=== PATIENT | male | born 1960 | race Caucasian/White ===

== ENCOUNTER 2025-06-13 15:11 | Inpatient (IN) | payer BC ==
[~2025-06-13] VITALS: Ht 185.4 cm; Wt 164.3 kg
[2025-06-13] MEDS: SODIUM CHLORIDE 0.9% 1,000 ML IV SCH (04:50)
[2025-06-13 15:40] LABS: Hematocrit 47.6 % (41.0-53.0); Hemoglobin 16.6 g/dL (13.5-17.5); Mean Corpuscular Hemoglobin 30.4 pg (28.0-32.0); Mean Corpuscular Volume 87.0 fL (80.0-100.0); Nucleated Red Blood Cells % 0.1 %
[2025-06-13 15:46] LABS: Chloride 100 mmol/L (98-107)
[2025-06-13 15:48] LABS: Anion Gap 13 (5-15); Calcium 9.6 mg/dL (8.7-10.4); Carbon Dioxide 22 mmol/L (20-31)
[2025-06-13 15:49] LABS: Potassium 3.5 mmol/L (3.5-5.1); Sodium 135 mmol/L (136-145)
--- NOTE | 2025-06-13 15:51 | ED.PDOC ---
HPI Comments 64 y.o male with PMHx of HTN and HLD, presents to the ED for a chief complaint of chest pain associated with palpitations and SOB that started x 3 -4 days ago. Patient describes pain as a tightness sensation, is intermittent and has no alleviating factors. Patient states symptoms are worse walking up his stairs at home and slightly relieves at rest. He denies any nausea, vomiting, fever, chills, or leg swelling. Chief Complaint: Shortness of Breath Time Seen by MD: 13:32 Reviewed Notes: Nurses Notes, Medications, Allergies Allergies: Coded Allergies: Rabies Vaccine (Verified Allergy, Unknown, 06/13/25) Information Source: Patient Mode of Arrival: Ambulatory Severity: Moderate Timing: Days (3-4) Duration: Since onset Location: Substernal Radiation: No Radiation Quality: Tightness Onset: At Rest Cardiac Risk Factors: Hyperlipidemia, HTN PE Risk Factors: None History of: None Modifying Factors: Nothing Associated Signs and Symptoms: SOB, Palpitations Past Medical History PAST MEDICAL HISTORY: High Lipids, HTN Surgical History: Denies all surgeries Family History Family History: Reviewed,noncontributory to illness Social History Smoker: Non-Smoker Alcohol: Denies ETOH Use Drugs: Denies Drug Use Lives In: Home Constitutional: reports: sweats; denies: chills, diaphoresis, fatigue, fever, malaise, weakness, others EENTM: denies: blurred vision, double vision, ear bleeding, ear discharge, ear drainage, ear pain, ear ringing, eye pain, eye redness, hearing loss, mouth pain, mouth swelling, nasal discharge, nose bleeding, nose congestion, nose pain, photophobia, tearing, throat pain, throat swelling, voice changes, others Respiratory: reports: SOB at rest, shortness of breath, SOB with excertion; denies: cough, hemoptysis, orthopnea, stridor, wheezing, others Cardiovascular: reports: chest pain, palpitations; denies: dizzy spells, diaphoresis, Dyspnea on exertion, edema, irregular heart beat, left arm pain, lightheadedness, PND, syncope, others Gastrointestinal: denies: abdomen distended, abdominal pain, blood streaked bowels, constipated, diarrhea, dysphagia, difficulty swallowing, hematemesis, melena, nausea, poor appetite, poor fluid intake, rectal bleeding, rectal pain, vomiting, others Genitourinary: denies: burning, dysuria, flank pain, frequency, hematuria, incontinence, penile discharge, penile sore, pain, testicle pain, testicle swelling, urgency, others Neurological: denies: dizziness, fainting, headache, left sided numbness, left sided weakness, numbness, paresthesia, pre-existing deficit, right sided numbness, right sided weakness, seizure, speech problems, tingling, tremors, weakness, others Musculoskeletal: denies: back pain, gout, joint pain, joint swelling, muscle pain, muscle stiffness, neck pain, others Integumetry: denies: bruises, change in color, change in hair/nails, dryness, laceration, lesions, lumps, rash, wounds, others Allergic/Immunocompromised: denies: Difficulty Healing, Frequent Infections, Hives, Itching, others Hematologic/Lymphatic: denies: anemia, blood clots, easy bleeding, easy bruising, swollen glands, others Endocrine: denies: excessive hunger, excessive sweating, excessive thirst, excessive urination, flushing, intolerance to cold, intolerance to heat, unexplained weight gain, unexplained weight loss, others Psychiatric: denies: anxiety, bipolar disorder, depression, hopeless, panic disorder, schizophrenia, sleepless, suicidal, others All Other Systems: Reviewed and Negative Physical Exam General Appearance: Moderate Distress, Obese HEENT: Normal ENT Inspection, Pharynx Normal, TMs Normal Neck: Full Range of Motion, Non-Tender, Normal, Normal Inspection Respiratory: Chest Non-Tender, Lungs Clear, No Accessory Muscle Use, No Respiratory Distress, Normal Breath Sounds Cardiovascular: No Edema, No JVD, No Murmur, No Gallop, Normal Peripheral Pulses, Regular Rate/Rhythm Breast Exam: Deferred Gastrointestinal: No Organomegaly, Non Tender, No Pulsatile Mass, Normal Bowel Sounds, Soft Genitalia: Deferred Pelvic: Deferred Rectal: Deferred Extremities: No calf tenderness, Normal capillary refill, Normal inspection, Normal range of motion, Non-tender, No pedal edema Musculoskeletal : Apperance: Normal 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 Was a procedure done?: No CP Differential Dx Differential Diagnosis: A-fib, A-Flutter, Angina, Anxiety / Panic Attack, Atrial Dysrhythmia, Electrolyte Disorder Differential Diagnosis: Angina, Chest Wall Pain, Cholelithiasis, Costochondritis, Pericarditis, Pneumonia X-Ray, Labs, Meds, VS Vital Signs Date Time Temp Pulse Resp B/P (MAP) Pulse Ox O2 Delivery O2 Flow Rate FiO2 06/13/25 16:06 93 06/13/25 15:26 92 06/13/25 15:14 97.6 103 19 153/86 97 97.6 Lab Test 06/13/25 16:24 06/13/25 15:33 Range/Units Troponin I High Sensitivity 4 4 </=54 ng/L White Blood Count 8.8 4.4-10.8 10^3/uL Red Blood Count 5.46 4.5-5.90 10^6/uL Hemoglobin 16.6 13.5-17.5 g/dL Hematocrit 47.6 41.0-53.0 % Mean Corpuscular Volume 87.0 80.0-100.0 fL Mean Corpuscular Hemoglobin 30.4 28.0-32.0 pg Mean Corpuscular Hemoglobin Concent 34.9 32.0-36.0 g/dL Red Cell Distribution Width 13.5 11.8-14.3 % Platelet Count 297 140-450 10^3/uL Mean Platelet Volume 7.6 6.9-10.8 fL Neutrophils (%) (Auto) 73.3 37.0-80.0 % Lymphocytes (%) (Auto) 16.8 10.0-50.0 % Monocytes (%) (Auto) 8.4 0.0-12.0 % Eosinophils (%) (Auto) 0.9 0.0-7.0 % Basophils (%) (Auto) 0.6 0.0-2.0 % Neutrophils # (Auto) 6.4 1.6-8.6 10 ^3/uL Lymphocytes # (Auto) 1.5 0.4-5.4 10 ^3/uL Monocytes # (Auto) 0.7 0-1.3 10 ^3/uL Eosinophils # (Auto) 0.1 0-0.8 10 ^3/uL Basophils # (Auto) 0.1 0-0.2 10 ^3/uL Nucleated Red Blood Cells 0.1 % Sodium Level 135 L 136-145 mmol/L Potassium Level 3.5 3.5-5.1 mmol/L Chloride Level 100 98-107 mmol/L Carbon Dioxide Level 22 20-31 mmol/L Anion Gap 13 5-15 Blood Urea Nitrogen 7 L 9-23 mg/dL Creatinine 1.07 0.700-1.30 mg/dL Glomerular Filtration Rate Calc 78 >90 mL/min BUN/Creatinine Ratio 6.5 L 10.0-20.0 Serum Glucose 123 H 74-106 mg/dL Calcium Level 9.6 8.7-10.4 mg/dL B-Type Natriuretic Peptide 9.84 0-100 pg/mL Patient alert. Came in because of shortness a breath chest pain. Vitals stable. Answering questions. WBC within normal limits. Blood pressure elevated. EKG reviewed does not show any acute changes. Explained to the patient. Continue monitoring. Time of 1ST Reevaluation: 15:47 Reevaluation 1ST: Unchanged Patient Education/Counseling: Diagnosis, Treatment, Prognosis Family Education/Counseling: No Family Present SEPSIS Sepsis Screen Date sepsis recognized/suspect: Jun 13, 2025 Time Sepsis recognized/suspect: 1516 Recent Procedure: No On Antibiotic Therapy: No Respiratory Rate >20: No Heart Rate >90: No Temp<36 C (96.8 F) or >38.3 C: No SBP <90 or MAP <65 mmHG: No New Acute Mental Status Change: No Is the patient on CPAP, BIPAP,: No Physician Orders Chest Portable (06/13/25 15:28) Urinalysis (06/13/25 15:28) Troponin-I Hs (06/13/25 18:28) Electrocardigram (06/13/25 16:55) Vital Signs Date Time Temp Pulse Resp B/P (MAP) Pulse Ox O2 Delivery O2 Flow Rate FiO2 06/13/25 16:06 93 06/13/25 15:26 92 06/13/25 15:14 97.6 103 19 153/86 97 97.6 Laboratory Tests Test 06/13/25 15:33 White Blood Count 8.8 10^3/uL (4.4-10.8) Departure 1 Departure Time of Disposition: 16:03 Impression: Primary Impression: Chest pain of unknown etiology Additional Impression: Hypertensive urgency Disposition: 09 ADMITTED INPATIENT Admit to: Med Surg Condition: Guarded Critical Care Note Critical Care Time?: No Stability Stability form required: No Heart Score Heart Score: Heart Score Response (Comments) Value History Moderate Suspicious 1 EKG Normal 0 Age 45-64 1 Risk Factors >3 or Hx ASHD 2 Troponin Normal limit 0 Total 4 I personally scribed for CHRISTA MELGAR MD ([email or web address]) on 06/13/25 at 15:51. Electronically submitted by Lexis Grullon ([email or web address]). CHRISTA MELGAR MD Jun 13, 2025 15:51
[2025-06-13 15:53] LABS: BUN/Creatinine Ratio 6.5 (10.0-20.0)
[2025-06-13 15:55] LABS: Blood Urea Nitrogen 7 mg/dL (9-23); Glucose 123 mg/dL (74-106)
--- NOTE | 2025-06-13 16:07 | ECG ---
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
--- NOTE | 2025-06-13 16:39 | DVH ---
CHEST RADIOGRAPH INDICATION: sob TECHNIQUE: Single frontal view of the chest was obtained COMPARISON: None FINDINGS: Lines and Tubes: None Lungs: Clear Pleura: No effusion. No pneumothorax. Cardiomediastinal contours: Unremarkable Bones: Unremarkable IMPRESSION: 1. No acute disease.
[2025-06-13 18:29] LABS: Urine Protein, UAD Negative (Negative)
[2025-06-13] MEDS ORDERED: HYDROcodone-ACET 5/325MG TAB PO PRN (20:15)
[2025-06-13] MEDS ORDERED: ACETAMINOPHEN 325 MG TAB PO PRN (20:15)
[2025-06-13] MEDS ORDERED: ALBUTEROL SULF 2.5 MG/0.5ML(0.5%) NEB SOLN NEB PRN (20:15)
[2025-06-13] MEDS ORDERED: ONDANSETRON HCL 4 MG/2 ML VIAL IV PRN (20:15)
[2025-06-13] MEDS ORDERED: IPRATROPIUM BROM 0.5 MG/2.5ML INH SOL NEB PRN (20:15)
[2025-06-13] MEDS ORDERED: DOCUSATE SOD 100 MG CAP PO PRN (20:15)
[2025-06-13 20:48] VITALS: BP 140/92; PULSE 89; RESP 16; TEMP 98.1; O2SAT 94
[2025-06-13] MEDS ORDERED: MORPHINE SULFATE INJ 2 MG/ml SYRG IV PRN (21:30)
[2025-06-13] MEDS ORDERED: NITROGLYCERIN 0.4 MG SL TAB SL PRN (21:30)
--- NOTE | 2025-06-13 21:31 | DVHHP2 ---
History of Present Illness Reason for Visit: Chest pain of unknown etiology History of Present Illness The patient is a 64-year-old male with past medical history of hyperlipidemia and hypertension who presented to [facility] ED with complaint of chest pain. Patient reports that he has been experiencing chest pain for the past 3 days, described as tightness sensation, intermittent, nonradiating, rating 7/10 numeric scale, worse working up his stairs at home, getting worse today that prompted this visit. Patient was seen and evaluated in the ED, laboratory data shows WBC 8.8, platelets 297, sodium 135, potassium 3.5, BUN 7, creatinine 1.07, GFR 78, glucose 123, calcium 9.6, troponin 4, BNP 9.84, blood pressure 164/80, heart rate 96, temperature 98.5 F, O2 saturation 96% on oxygen. Chest x-ray show no acute disease. On my assessment, patient denied chest pain at this moment, no headache, diaphoresis, diaphoresis, currently on oxygen, no diarrhea, nausea, vomiting, fever, no chills. Patient was admitted for further evaluation and medical management. Past Medical History High Lipids, HTN Past Surgical History Denies all surgeries Family History Reviewed, noncontributory to the management of this case. Past Social History The patient lives at home, denies smoking, alcohol or illicit drugs abuse. Review of Systems Constitutional: Yes: Weakness; No: Fever, Chills, Sweats, Malaise, Other Eyes: No: Pain, Vision change, Conjunctivae inflammation, Eyelid inflammation, Other, Redness ENT: No: Ear pain, Ear discharge, Nose pain, Nose discharge, Nose congestion, Mouth pain, Mouth swelling, Throat pain, Throat swelling, Other Respiratory: Shortness of breath, SOB with excertion, Wheezing, Other (SOB at rest); No: Cough, Dry, Hemoptysis, Pleuritic Pain, Sputum, Wheezing Cardiovascular: Chest Pain, Palpitations; No: Orthopnea, Paroxysmal Noc. Dyspnea, Edema, Lt Headedness, Other Gastrointestinal: No: Nausea, Vomiting, Abdominal Pain, Diarrhea, Constipation, Melena, Hematochezia, Other Genitourinary: No Dysuria, No Frequency, No Incontinence, No Hematuria, No Retention, No Other Musculoskeletal: No: other, neck pain, shoulder pain, arm pain, back pain, hand pain, leg pain, foot pain Skin: No: Rash, Lesions, Jaundice, Bruising, Other Neurological: No: Weakness, Numbness, Incoordination, Change in speech, Confusion, Seizures, Other Allergies: Coded Allergies: Rabies Vaccine (Verified Allergy, Unknown, 06/13/25) Medications Current Medications Medications Dose Ordered Sig/Henri Route Start Time Stop Time Status Last Admin Dose Admin Aspirin 81 mg DAILY PO 06/14/25 10:00 Atorvastatin Calcium 20 mg HS PO 06/13/25 22:00 Albuterol 2.5 mg Q4HPRN PRN NEB 06/13/25 20:15 Ipratropium [place] 0.5 mg Q4HPRN PRN NEB 06/13/25 20:15 Amlodipine Besylate 10 mg DAILY PO 06/14/25 10:00 Metoprolol Tartrate 25 mg BID PO 06/13/25 22:00 Sodium Chloride 1,000 ml @ 60 mls/hr [id number] IV 06/13/25 20:15 Acetaminophen/ Hydrocodone Bitart 1 tab Q4HP PRN PO 06/13/25 20:15 Ondansetron HCl 4 mg Q4HP PRN IV 06/13/25 20:15 Docusate Sodium 100 mg BIDPRN PRN PO 06/13/25 20:15 Acetaminophen 650 mg Q6HP PRN PO 06/13/25 20:15 Exam Vital Signs Vital Signs Date Time Temp Pulse Resp B/P (MAP) Pulse Ox O2 Delivery O2 Flow Rate FiO2 06/13/25 20:48 98.1 89 16 140/92 (108) 94 98.1 General Appearance: Alert, Oriented X3, Cooperative, No acute distress HEENT: Atraumatic, PERRLA, EOMI, Mucous membr. moist/pink Respiratory: Normal air movement, Other (Shortness of breaths) Cardiovascular: Regular rate, Normal S1, Normal S2, No murmurs Abdominal: Normal bowel sounds, Soft, No tenderness, No hepatospenomegaly, No masses Extremities: No clubbing, No cyanosis, No edema, Normal pulses, No tenderness/swelling Skin: No rashes, No significant lesion Neuro: Normal speech, Normal tone, Sensation intact, Cranial nerves 3-12 NL, Reflexes 2+ Psych/Mental Status: Mental status NL, Mood NL Labs/Xrays Labs Test 06/13/25 17:45 06/13/25 16:24 06/13/25 15:33 Range/Units Urine Color Yellow Yellow Urine Clarity Clear Clear Urine pH 5.5 5.0-9.0 Urine Specific [place] 1.014 1.001-1.035 Urine Protein Negative Negative Urine Ketones 2+ H Negative Urine Blood Negative Negative /uL Urine Nitrite Negative Negative Urine Bilirubin Negative Negative Urine Urobilinogen Normal Negative mg/dL Urine Leukocyte Esterase Negative Negative /uL Urine RBC 1 0 - 3 /hpf Urine Microscopic WBC 1 0-3 /HPF Urine Squamous Epithelial Cells None seen <5 /hpf Urine Bacteria None seen None Seen /hpf Urine Glucose Normal Normal mg/dL Troponin I High Sensitivity 4 </=54 ng/L White Blood Count 8.8 4.4-10.8 10^3/uL Red Blood Count 5.46 4.5-5.90 10^6/uL Hemoglobin 16.6 13.5-17.5 g/dL Hematocrit 47.6 41.0-53.0 % Mean Corpuscular Volume 87.0 80.0-100.0 fL Mean Corpuscular Hemoglobin 30.4 28.0-32.0 pg Mean Corpuscular Hemoglobin Concent 34.9 32.0-36.0 g/dL Red Cell Distribution Width 13.5 11.8-14.3 % Platelet Count 297 140-450 10^3/uL Mean Platelet Volume 7.6 6.9-10.8 fL Neutrophils (%) (Auto) 73.3 37.0-80.0 % Lymphocytes (%) (Auto) 16.8 10.0-50.0 % Monocytes (%) (Auto) 8.4 0.0-12.0 % Eosinophils (%) (Auto) 0.9 0.0-7.0 % Basophils (%) (Auto) 0.6 0.0-2.0 % Neutrophils # (Auto) 6.4 1.6-8.6 10 ^3/uL Lymphocytes # (Auto) 1.5 0.4-5.4 10 ^3/uL Monocytes # (Auto) 0.7 0-1.3 10 ^3/uL Eosinophils # (Auto) 0.1 0-0.8 10 ^3/uL Basophils # (Auto) 0.1 0-0.2 10 ^3/uL Nucleated Red Blood Cells 0.1 % Sodium Level 135 L 136-145 mmol/L Potassium Level 3.5 3.5-5.1 mmol/L Chloride Level 100 98-107 mmol/L Carbon Dioxide Level 22 20-31 mmol/L Anion Gap 13 5-15 Blood Urea Nitrogen 7 L 9-23 mg/dL Creatinine 1.07 0.700-1.30 mg/dL Glomerular Filtration Rate Calc 78 >90 mL/min BUN/Creatinine Ratio 6.5 L 10.0-20.0 Serum Glucose 123 H 74-106 mg/dL Calcium Level 9.6 8.7-10.4 mg/dL B-Type Natriuretic Peptide 9.84 0-100 pg/mL PATIENT: BOB ALVAREZ ACCT: [id number] UNIT: [id number] : 1960 LOC: ER ROOM / BED: / AGE / SEX: 64 / M ADM STATUS: REG ER SERVICE 1528 ORDERING PHYSICIAN: CHRISTA MELGAR MD PROCEDURE(s): CXRP - CHEST PORTABLE REASON: sob ORDER NUMBER(s): [id number], ACCESSION NUMBER(s): [id number] CHEST RADIOGRAPH INDICATION: sob TECHNIQUE: Single frontal view of the chest was obtained COMPARISON: None FINDINGS: Lines and Tubes: None Lungs: Clear Pleura: No effusion. No pneumothorax. Cardiomediastinal contours: Unremarkable Bones: Unremarkable IMPRESSION: 1. No acute disease. SEPSIS Sepsis Screen Date sepsis recognized/suspect: Jun 13, 2025 Time Sepsis recognized/suspect: 1517 Recent Procedure: No On Antibiotic Therapy: No Respiratory Rate >20: No Heart Rate >90: No Temp<36 C (96.8 F) or >38.3 C: No SBP <90 or MAP <65 mmHG: No New Acute Mental Status Change: No Is the patient on CPAP, BIPAP,: No Physician Orders Chest Portable (06/13/25 15:28) Electrocardigram (06/13/25 16:55) Aspirin Chewable Tablet (06/14/25 10:00) Atorvastatin (Lipitor) (06/13/25 22:00) Albuterol Medneb (Ventolin Medneb) (06/13/25 20:15) Ipratropium Medneb (Atrovent Medneb) (06/13/25 20:15) Amlodipine Tablet (Norvasc Tablet) (06/14/25 10:00) Metoprolol Tartrate Tablet (Lopressor Ta (06/13/25 22:00) Allergies (06/13/25 20:11) Code Status (06/13/25 20:11) Sodium Chloride 0.9% (06/13/25 20:15) Oxygen Per Hour (06/13/25 20:11) Hydrocodone-Acet 5/325mg Tab ([place] 5/32 (06/13/25 20:15) Ondansetron Hcl (Zofran) (06/13/25 20:15) Docusate Sodium Capsule (Colace Capsule) (06/13/25 20:15) Complete Blood Count (06/14/25 04:00) Comprehensive Metabolic Panel (06/14/25 04:00) Cardiac Diet-2gna,Lofat,Lochol (06/14/25 Breakfast) Condition: Serious (06/13/25 20:11) Acetaminophen Tablet (Tylenol Tablet) (06/13/25 20:15) Bedrest With Bathroom Privileg (06/13/25 20:11) Sequential Compression Device (06/13/25 ) Vital Signs Date Time Temp Pulse Resp B/P (MAP) Pulse Ox O2 Delivery O2 Flow Rate FiO2 06/13/25 20:48 98.1 89 16 140/92 (108) 94 98.1 06/13/25 18:57 98.5 96 20 164/80 (108) 96 98.5 06/13/25 16:06 93 06/13/25 15:26 92 06/13/25 15:14 97.6 103 19 153/86 97 97.6 Laboratory Tests Test 06/13/25 15:33 White Blood Count 8.8 10^3/uL (4.4-10.8) Assessment/Plan Assessment/Plan Chest pain of unknown etiology Hypertensive urgency Acute respiratory distress Generalized weakness Plan 1. Admit to telemetry unit 2. Breathing treatment 3. Pain control management 4. Management of fluids and electrolytes 5. Consultation for hospitalist 6. Diagnostic tests chest x-ray 7. DVT prophylaxis-on aspirin 8. Repeat labs CBC, CMP in a.m. 9. Continue with current medical management 10. Treatment plan discussed with patient and RN. Patient verbalized understanding. Plan discussed with: Patient, Other (RN) My Orders Orders - GREER NATARAJAN DNP Procedure Category Date Status Time Aspirin Chewable PHA 06/14/25 In Process Tablet 10:00 Atorvastatin (Lipitor) PHA 06/13/25 In Process 22:00 Albuterol Medneb PHA 06/13/25 In Process (Ventolin Medneb) 20:15 Ipratropium Medneb PHA 06/13/25 In Process (Atrovent Medneb) 20:15 Amlodipine Tablet PHA 06/14/25 In Process (Norvasc Tablet) 10:00 Metoprolol Tartrate PHA 06/13/25 In Process Tablet (Lopressor Ta 22:00 Allergies NICOLE 06/13/25 In Process 20:11 Code Status CODE 06/13/25 Transmitted 20:11 Sodium Chloride 0.9% PHA 06/13/25 In Process 20:15 Oxygen Per Hour RT 06/13/25 Transmitted 20:11 Hydrocodone-Acet PHA 06/13/25 In Process 5/325mg Tab ([place] 20:15 Ondansetron Hcl PHA 06/13/25 In Process (Zofran) 20:15 Docusate Sodium PHA 06/13/25 In Process Capsule (Colace 20:15 Complete Blood Count LAB 06/14/25 Verified 04:00 Comprehensive LAB 06/14/25 Verified Metabolic Panel 04:00 Cardiac DIET 06/14/25 Transmitted Diet-2gna,Lofat,Lochol Breakfast Condition: Serious NICOLE 06/13/25 In Process 20:11 Acetaminophen Tablet PHA 06/13/25 In Process (Tylenol Tablet) 20:15 Bedrest With Bathroom NICOLE 06/13/25 In Process Privileg 20:11 Sequential NICOLE 06/13/25 In Process Compression Device Problem List: (1) Chest pain of unknown etiology (2) Hypertensive urgency (3) Acute respiratory distress (4) Generalized weakness Date of Service: Jun 13, 2025 Billing Provider: GREER NATARAJAN DNP Common Visit Codes: [id number] INP/OBS CARE (HIGH) GREER NATARAJAN DNP Jun 13, 2025 21:31
[2025-06-14] VITALS (10 sets, daily range): BP systolic 122–168; BP diastolic 74–93; PULSE 60–85; RESP 17–18; TEMP 97.5–98.5; O2SAT 95–99
[2025-06-14] MEDS: ATORVASTATIN 20 MG TAB PO SCH ×2 (03:30→21:46)
[2025-06-14] MEDS: METOPROLOL TARTRATE 25 MG TAB PO SCH ×2 (03:31→21:47)
[2025-06-14] MEDS ORDERED: ATOR20TA PO (04:39)
[2025-06-14] MEDS ORDERED: AMLO1TAB23 PO (04:39)
[2025-06-14] MEDS ORDERED: LISI-707 PO (04:39)
[2025-06-14 10:33] LABS: Hematocrit 42.7 % (41.0-53.0); Hemoglobin 15.4 g/dL (13.5-17.5); Mean Corpuscular Hemoglobin 30.7 pg (28.0-32.0); Mean Corpuscular Volume 84.9 fL (80.0-100.0); Nucleated Red Blood Cells % 0.1 %
[2025-06-14 10:49] LABS: Albumin 4.2 g/dL (3.2-4.8); Alkaline Phosphatase 75 U/L (46-116); Anion Gap 9 (5-15); BUN/Creatinine Ratio 7.1 (10.0-20.0); Bilirubin, Total 0.9 mg/dL (0.2-1.0); Calcium 9.6 mg/dL (8.7-10.4); Carbon Dioxide 26 mmol/L (20-31); Chloride 101 mmol/L (98-107); Potassium 3.6 mmol/L (3.5-5.1); Total Protein 6.5 g/dL (5.7-8.2)
[2025-06-14 10:50] LABS: Alanine Aminotransferase 41 U/L (7-40); Blood Urea Nitrogen 7 mg/dL (9-23); Glucose 108 mg/dL (74-106); Sodium 136 mmol/L (136-145)
--- NOTE | 2025-06-14 16:37 | DVHPN2 ---
Assessment/Plan Assessment/Plan 64 M with HTN, HLD morbid obesity, CHUCKY admitted for chest pain, from patient complaints pain looks like anginal pain. 06/14 seen today, c/w bb. cardio consult for stress test vs cath as pt high risk. use own cpap at night physical exam aox4 morbidly obese diminished breath sounds due to habituis s1 s2 distant abdomen soft LE edema labs ekg imaging reviewed assessment and plan chest pain likely of cardiac origin morbid obesity HTN HLD CHUCKY echo telemetry cardio consult for stress test use own cpap at night resum ehome meds asa, lipitor diet cardiac dvt ppx lovenox full code Plan discussed with: Patient Date of Service: Jun 14, 2025 Billing Provider: RACHEL DALAL MD Common Visit Codes: [id number] INP/OBS CARE(HIGH) RACHEL DALAL MD Jun 14, 2025 16:37
[2025-06-14 17:02] LABS: Triglycerides 65 mg/dL (< 150)
[2025-06-14 17:04] LABS: Cholesterol 148 mg/dL (< 200); HDL Cholesterol 54 mg/dL (40-59)
--- NOTE | 2025-06-14 20:19 | DVHINCON2 ---
Date of service: Jun 14, 2025 Referring Physician Kamran Reason for Consultation Stable angina History of Present Illness This is a 64-year-old male with a past medical history of hyperlipidemia and hypertension who presented to the ED with complaint of chest pain. Patient reports that he has been experiencing chest pain for the past 3 days, described as tightness sensation, intermittent, nonradiating, rating 7/10 numeric scale, worse working up his stairs at home. 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 Chest x-ray showed no acute disease. Patient was admitted to the hospital. I am asked to consult on this patient. Family History: Diabetes mellitus G8 MOTHER G8 FATHER Allergies: Coded Allergies: Rabies Vaccine (Verified Allergy, Unknown, 06/13/25) Home Meds Reported Medications Amlodipine Besylate (Amlodipine Besylate) 10 Mg Tab, 1 TAB PO DAILY, #30 TAB 5 Refills 06/14/25 Lisinopril & Hydrochlorothiazi (Zestoretic 20-25 mg) 1 Tab Tab, 1 TAB PO DAILY, TAB 06/14/25 Atorvastatin Calcium (Lipitor) 20 Mg Tab, 1 TAB PO DAILY, #90 TAB 1 Refill 06/14/25 Current Medications Current Medications Medications (Trade) Dose Ordered Sig/Henri Route PRN Reason Start Time Stop Time Status Last Admin Aspirin 81 mg DAILY PO 06/14/25 10:00 06/14/25 09:44 Atorvastatin Calcium (Lipitor) 20 mg HS PO 06/13/25 22:00 06/14/25 03:30 Albuterol (Ventolin Medneb) 2.5 mg Q4HPRN PRN NEB SHORTNESS OF BREATH 06/13/25 20:15 Ipratropium [place] (Atrovent Medneb) 0.5 mg Q4HPRN PRN NEB SHORTNESS OF BREATH 06/13/25 20:15 Amlodipine Besylate (Norvasc Tablet) 10 mg DAILY PO 06/14/25 10:00 06/14/25 09:45 Metoprolol Tartrate (Lopressor Tablet) 25 mg BID PO 06/13/25 22:00 06/14/25 09:46 Sodium Chloride 1,000 ml @ 60 mls/hr [id number] IV 06/13/25 20:15 06/14/25 12:55 Acetaminophen/ Hydrocodone Bitart ([place] 5/325MG Tab) 1 tab Q4HP PRN PO MODERATE PAIN (4-6 PAIN SCALE) 06/13/25 20:15 Ondansetron HCl (Zofran) 4 mg Q4HP PRN IV NAUSEA / VOMITING 06/13/25 20:15 Docusate Sodium (Colace Capsule) 100 mg BIDPRN PRN PO FOR CONSTIPATION 06/13/25 20:15 Acetaminophen (Tylenol Tablet) 650 mg Q6HP PRN PO PAIN SCALE 1-3 OR TEMP>100.4 06/13/25 20:15 Nitroglycerin (Ntrostat Sublingual) 0.4 mg Q5MINP PRN SL FOR CHEST PAIN 06/13/25 21:30 06/14/25 04:18 DC Morphine Sulfate 2 mg Q30M PRN IV FOR CHEST PAIN 06/13/25 21:30 06/14/25 04:18 DC Review of Systems Constitutional: reports: sweats; denies: chills, diaphoresis, fatigue, fever, malaise, weakness, others EENTM: denies: blurred vision, double vision, ear bleeding, ear discharge, ear drainage, ear pain, ear ringing, eye pain, eye redness, hearing loss, mouth pain, mouth swelling, nasal discharge, nose bleeding, nose congestion, nose pain, photophobia, tearing, throat pain, throat swelling, voice changes, others Respiratory: reports: SOB at rest, shortness of breath, SOB with excertion; denies: cough, hemoptysis, orthopnea, stridor, wheezing, others Cardiovascular: reports: chest pain, palpitations; denies: dizzy spells, diap horesis, Dyspnea on exertion, edema, irregular heart beat, left arm pain, lightheadedness, PND, syncope, others Gastrointestinal: denies: abdomen distended, abdominal pain, blood streaked bowels, constipated, diarrhea, dysphagia, difficulty swallowing, hematemesis, melena, nausea, poor appetite, poor fluid intake, rectal bleeding, rectal pain, vomiting, others Genitourinary: denies: burning, dysuria, flank pain, frequency, hematuria, incontinence, penile discharge, penile sore, pain, testicle pain, testicle swelling, urgency, others Neurological: denies: dizziness, fainting, headache, left sided numbness, left sided weakness, numbness, paresthesia, pre-existing deficit, right sided numbness, right sided weakness, seizure, speech problems, tingling, tremors, weakness, others Musculoskeletal: denies: back pain, gout, joint pain, joint swelling, muscle pain, muscle stiffness, neck pain, others Integumetry: denies: bruises, change in color, change in hair/nails, dryness, laceration, lesions, lumps, rash, wounds, others Allergic/Immunocompromised: denies: Difficulty Healing, Frequent Infections, Hives, Itching, others Hematologic/Lymphatic: denies: anemia, blood clots, easy bleeding, easy bruising, swollen glands, others Endocrine: denies: excessive hunger, excessive sweating, excessive thirst, excessive urination, flushing, intolerance to cold, intolerance to heat, unexplained weight gain, unexplained weight loss, others Psychiatric: denies: anxiety, bipolar disorder, depression, hopeless, panic disorder, schizophrenia, sleepless, suicidal, others All Other Systems: Reviewed and Negative Vital Signs Vital Signs Date Time Temp Pulse Resp B/P (MAP) Pulse Ox O2 Delivery O2 Flow Rate FiO2 06/14/25 16:57 98.5 78 18 122/74 (90) 96 98.5 06/14/25 10:14 Room Air 0.0 06/14/25 10:14 21 Physical Exam GENERAL: Alert and oriented x 3. No acute distress. Morbidly obese. EYES: PERRL, EOMI. Anicteric. HENT: Moist mucous membranes. LUNGS: Clear to auscultation bilaterally. CARDIOVASCULAR: Regular rate and rhythm. ABDOMEN: Soft, nontender and nondistended. EXTREMITIES: No edema. NEUROLOGIC: No focal neurological deficits. SKIN: Warm, dry. Labs/Diagnostic Data Labs Test 06/14/25 10:21 06/13/25 22:18 06/13/25 17:45 06/13/25 16:24 Range/Units White Blood Count 8.3 4.4-10.8 10^3/uL Red Blood Count 5.02 4.5-5.90 10^6/uL Hemoglobin 15.4 13.5-17.5 g/dL Hematocrit 42.7 # 41.0-53.0 % Mean Corpuscular Volume 84.9 80.0-100.0 fL Mean Corpuscular Hemoglobin 30.7 28.0-32.0 pg Mean Corpuscular Hemoglobin Concent 36.1 H 32.0-36.0 g/dL Red Cell Distribution Width 13.4 11.8-14.3 % Platelet Count 255 140-450 10^3/uL Mean Platelet Volume 7.5 6.9-10.8 fL Neutrophils (%) (Auto) 63.4 37.0-80.0 % Lymphocytes (%) (Auto) 22.9 10.0-50.0 % Monocytes (%) (Auto) 10.3 0.0-12.0 % Eosinophils (%) (Auto) 2.2 0.0-7.0 % Basophils (%) (Auto) 1.2 0.0-2.0 % Neutrophils # (Auto) 5.3 1.6-8.6 10 ^3/uL Lymphocytes # (Auto) 1.9 0.4-5.4 10 ^3/uL Monocytes # (Auto) 0.9 0-1.3 10 ^3/uL Eosinophils # (Auto) 0.2 0-0.8 10 ^3/uL Basophils # (Auto) 0.1 0-0.2 10 ^3/uL Nucleated Red Blood Cells 0.1 % Sodium Level 136 136-145 mmol/L Potassium Level 3.6 3.5-5.1 mmol/L Chloride Level 101 98-107 mmol/L Carbon Dioxide Level 26 20-31 mmol/L Anion Gap 9 5-15 Blood Urea Nitrogen 7 L 9-23 mg/dL Creatinine 0.98 0.700-1.30 mg/dL Glomerular Filtration Rate Calc 87 >90 mL/min BUN/Creatinine Ratio 7.1 L 10.0-20.0 Serum Glucose 108 H 74-106 mg/dL Hemoglobin A1c 5.0 <5.7 % A1C Calcium Level 9.6 8.7-10.4 mg/dL Total Bilirubin 0.9 0.2-1.0 mg/dL Aspartate Amino Transferase (AST) 27 13-40 U/L Alanine Aminotransferase (ALT) 41 H 7-40 U/L Alkaline Phosphatase 75 46-116 U/L Total Protein 6.5 5.7-8.2 g/dL Albumin 4.2 3.2-4.8 g/dL Triglycerides Level 65 < 150 mg/dL Cholesterol Level 148 < 200 mg/dL LDL Cholesterol 85 < 100 mg/dL HDL Cholesterol 54 40-59 mg/dL Thyroid Stimulating Hormone (TSH) 1.67 0.55-4.78 uIU/mL POC Glucose 124 H 70-106 mg/dl Urine Color Yellow Yellow Urine Clarity Clear Clear Urine pH 5.5 5.0-9.0 Urine Specific [place] 1.014 1.001-1.035 Urine Protein Negative Negative Urine Ketones 2+ H Negative Urine Blood Negative Negative /uL Urine Nitrite Negative Negative Urine Bilirubin Negative Negative Urine Urobilinogen Normal Negative mg/dL Urine Leukocyte Esterase Negative Negative /uL Urine RBC 1 0 - 3 /hpf Urine Microscopic WBC 1 0-3 /HPF Urine Squamous Epithelial Cells None seen <5 /hpf Urine Bacteria None seen None Seen /hpf Urine Glucose Normal Normal mg/dL Troponin I High Sensitivity 4 </=54 ng/L Test 06/13/25 15:33 Range/Units B-Type Natriuretic Peptide 9.84 0-100 pg/mL Assessment Chest pain. Morbid obesity. HTN. HLD. CHUCKY. Plan/Recommendation I agree with your ongoing assessment and care of plan. Echocardiogram. [place] for pain management. Amlodipine. Aspirin, Lipitor, Metoprolol. Additional plan as per the hospital course. A total of 45 minutes was spent reviewing the patient record, examining the patient, making a diagnostic and therapeutic plan, discussing this plan with medical personnel, following up on diagnostic studies and following the patient for clinical stability excluding any and all procedures. At least 50% of this time was spent in direct, [id number] contact. Plan discussed with: Patient KOSTAS YEAGER MD Jun 14, 2025 18:39
[2025-06-14] MEDS ORDERED: ONDANSETRON HCL 4 MG/2 ML VIAL IV PRN (21:15)
[2025-06-14] MEDS ORDERED: ALBUTEROL SULF 2.5 MG/0.5ML(0.5%) NEB SOLN NEB PRN (21:15)
[2025-06-14] MEDS ORDERED: HYDROcodone-ACET 5/325MG TAB PO PRN (21:15)
[2025-06-14] MEDS ORDERED: DOCUSATE SOD 100 MG CAP PO PRN (21:15)
[2025-06-14] MEDS: SODIUM CHLORIDE 0.9% 1,000 ML IV SCH (21:15)
[2025-06-14] MEDS ORDERED: IPRATROPIUM BROM 0.5 MG/2.5ML INH SOL NEB PRN (21:15)
[2025-06-14] MEDS ORDERED: ACETAMINOPHEN 325 MG TAB PO PRN (21:15)
[2025-06-15] VITALS (16 sets, daily range): BP systolic 97–146; BP diastolic 61–84; PULSE 58–117; RESP 11–19; TEMP 97.6–98.2; O2SAT 92–98
[2025-06-15 06:45] LABS: Hematocrit 42.7 % (41.0-53.0); Hemoglobin 15.1 g/dL (13.5-17.5); Mean Corpuscular Hemoglobin 30.5 pg (28.0-32.0); Mean Corpuscular Volume 86.2 fL (80.0-100.0); Nucleated Red Blood Cells % 0.1 %
[2025-06-15 07:03] LABS: INR 1.94 (0.9-1.15); Partial Thromboplastin Time 30.9 SEC (24.5-34.5); Prothrombin Time 19.3 sec (9.3-11.8)
[2025-06-15 07:05] LABS: Calcium 9.2 mg/dL (8.7-10.4); Chloride 102 mmol/L (98-107); Sodium 138 mmol/L (136-145)
[2025-06-15 07:06] LABS: Anion Gap 9 (5-15); Carbon Dioxide 27 mmol/L (20-31)
[2025-06-15 07:12] LABS: BUN/Creatinine Ratio 8.2 (10.0-20.0); Glucose 92 mg/dL (74-106)
[2025-06-15 07:17] LABS: Blood Urea Nitrogen 8 mg/dL (9-23); Potassium 3.2 mmol/L (3.5-5.1)
[2025-06-15] MEDS: IODIXANOL 320MG/ML 100ML BTL IV ONE (09:30)
[2025-06-15] MEDS: HEPARIN SODIUM (PORCINE) 5000 UNITS/ML 1ML VIAL ONE (09:42)
[2025-06-15] MEDS: ANGIOMAX 250 MG VIAL IV ONE (09:42)
[2025-06-15] MEDS: SODIUM CHL 0.9% 0 ML ONE (09:43)
[2025-06-15] MEDS: MIDAZOLAM HCL 2MG/2ML 2ml VIAL (1mg/ml) ONE (09:43)
[2025-06-15] MEDS: fentaNYL CITRATE 100 MCG/2 ML VL ONE (09:43)
[2025-06-15] MEDS: LIDOCAINE 2%HCL (LOCAL ANESTH.) INJ 20ML MDV ONE (09:43)
[2025-06-15] MEDS: VERAPAMIL 2.5MG/ML INJ 2ML VIAL IV ONE (09:47)
--- NOTE | 2025-06-15 10:09 | ECG ---
[facility] Test Date: 2025-06-13 Test Time: 15:26:18 Pat Name: BOB ALVAREZ Department: Room: 0285T Gender: M Library Monitor: NAI : 1960 Requested By: CHRISTA MELGAR Order Number: [id number] Reading MD: Measurements Intervals [place] Rate: 92 P: 24 CA: 162 QRS: 20 QRSD: 78 T: 49 QT: 355 QTc: 440 Interpretive Statements Sinus rhythm Ventricular premature complex Left atrial enlargement Low voltage, precordial leads Abnormal R-wave progression, early transition Borderline ST depression, lateral leads Baseline wander in lead(s) V1 Please click the below link to view image of tracing.
--- NOTE | 2025-06-15 12:03 | DVHOP ---
DATE OF SURGERY: 06/15/2025 TECHNIQUE PERFORMED: * Ultrasound of the right radial artery. * Management of conscious sedation. * Ultrasound-guided insertion of a 6-Kaz[place] arterial line in the right radial artery. * Left heart catheterization. * Left ventriculogram. * [place] selective left and right coronary artery angiography. ASSISTANTS: Assisted by Celestino. Other assistants are Nitesh Paulson and Lesley. INDICATIONS: angina. Came to the emergency room for chest pain going to the left arm. DESCRIPTION OF PROCEDURE: Risks and benefits discussed. Counseling done. 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 The right radial area thoroughly cleaned with soap and Betadine. A 6-Kazakh arterial line was placed. The patient got 100 mcg of nitroglycerin, 2000 units of heparin, 2.5 mg of verapamil, and we have put TIG catheter 5-Kazakh 4.0 was passed. We were unable to engage it. So we used JR4 catheter and right coronary angiogram done. With the help of the similar catheter, left heart cath had been done left heart cath and left ventriculogram was done. Procedure completed. There were no complications. IMPRESSION: * Normal left main. * Normal left anterior descending artery widely open and mild irregularity noted. * Circumflex artery. * Diagonal artery normal. * Septal pet care attendant normal. * Circumflex and obtuse marginal arteries normal. * The right coronary artery is a large dominant artery and is normal. * Ejection fraction of the left ventricle is 65% and is normal. CONCLUSION: No evidence of any occlusive coronary artery disease. Ejection fraction 65%. PLAN OF ACTION: Advised conservative medical treatment. MD KRISTEN Irvin TID: [id number] RECEIPT: [id number] LEONOR
--- NOTE | 2025-06-15 12:10 | DVHPN2 ---
Assessment/Plan Assessment/Plan 64 M with HTN, HLD morbid obesity, CHUCKY admitted for chest pain, from patient complaints pain looks like anginal pain. 06/14 seen today, c/w bb. cardio consult for stress test vs cath as pt high risk. use own cpap at night 06/15 for cath today physical exam aox4 morbidly obese diminished breath sounds due to habituis s1 s2 distant abdomen soft LE edema labs ekg imaging reviewed assessment and plan chest pain likely of cardiac origin morbid obesity HTN HLD CHUCKY echo telemetry cardio consult appreciated, plan for cath use own cpap at night resum ehome meds asa, lipitor diet cardiac dvt ppx lovenox full code Plan discussed with: Patient My Orders Orders - RACHEL DALAL MD Procedure Category Date Status Time * Cardiology Consult CONS 06/14/25 Transmitted 16:47 Echo 2d Mode Cardiac US 06/15/25 Logged DOP 16:37 Date of Service: Jun 15, 2025 Billing Provider: RACHEL DALAL MD Common Visit Codes: [id number] INP/OBS CARE(HIGH) RACHEL DALAL MD Jun 15, 2025 12:10
--- NOTE | 2025-06-15 19:40 | DVHPN2 ---
Progress Note - Dictate Date Seen: Jun 15, 2025 Medical Necessity Reason Pt with a Central, PICC or Fol: No Subjective Patient was seen and evaluated in follow up. Patient underwent left heart catheterization, [place] selective left and right coronary artery angiography. There is no evidence of any occlusive coronary artery disease. Ejection fraction 65%. Patient is advised conservative medical treatment. CBC is unremarkable. K 3.2. Telemetry reviewed. vital signs Vital Sign Date Time Temp Pulse Resp B/P (MAP) Pulse Ox O2 Delivery O2 Flow Rate FiO2 06/15/25 17:14 97.6 71 18 127/75 (92) 98 97.6 06/15/25 09:47 Room Air 0.0 06/15/25 09:47 21 Total Intake and Output 06/14/25 06/14/25 06/15/25 15:00 23:00 07:00 Intake Total 400 ml 0 ml Balance 400 ml 0 ml medications Current Medications Medications Dose Ordered Sig/Henri Route Start Time Stop Time Status Last Admin Dose Admin Aspirin 81 mg DAILY PO 06/15/25 10:00 Atorvastatin Calcium 20 mg HS PO 06/14/25 22:00 06/14/25 21:46 20 MG Albuterol 2.5 mg Q4HPRN PRN NEB 06/14/25 21:15 Cancel Ipratropium [place] 0.5 mg Q4HPRN PRN NEB 06/14/25 21:15 Cancel Amlodipine Besylate 10 mg DAILY PO 06/15/25 10:00 Metoprolol Tartrate 25 mg BID PO 06/14/25 22:00 06/14/25 21:47 25 MG Sodium Chloride 1,000 ml @ 60 mls/hr [id number] IV 06/14/25 21:15 06/15/25 13:36 60 MLS/HR Acetaminophen/ Hydrocodone Bitart 1 tab Q4HP PRN PO 06/14/25 21:15 Ondansetron HCl 4 mg Q4HP PRN IV 06/14/25 21:15 Docusate Sodium 100 mg BIDPRN PRN PO 06/14/25 21:15 Acetaminophen 650 mg Q6HP PRN PO 06/14/25 21:15 objective GENERAL: Alert and oriented x 3. No acute distress. Morbidly obese. EYES: PERRL, EOMI. Anicteric. HENT: Moist mucous membranes. LUNGS: Clear to auscultation bilaterally. CARDIOVASCULAR: Regular rate and rhythm. ABDOMEN: Soft, nontender and nondistended. EXTREMITIES: No edema. NEUROLOGIC: No focal neurological deficits. SKIN: Warm, dry. laboratory and microbiology Laboratory Tests 06/15/25 06:08 Test 06/15/25 06:08 Range/Units Serum Glucose 92 74-106 mg/dL Problem List Chest pain. Morbid obesity. HTN. HLD. CHUCKY. Assessment/Plan Continued all current supportive medical care. Echocardiogram. [place] for pain management. Amlodipine. Aspirin, Lipitor, Metoprolol. Additional plan as per the hospital course. Plan discussed with: Patient KOSTAS YEAGER MD Jun 15, 2025 19:40
--- NOTE | 2025-06-15 20:42 | DVHSR ---
APPROVED REPORT EXAM: Two-dimensional and M-mode echocardiogram with Doppler and color Doppler. Blood Pressure: 132/80 mmHg INDICATION Chest Pain RISK FACTORS Height: 6'1, Weight: 357 DIMENSIONS LVDd 5.2 (3.8-5.7cm) LA (2D) 4.3 (1.9-4.0cm) Aortic Root 2.9 (2.0-3.7cm) LVDs 3.7 (2.5-4.0cm) LA (MM) (1.9-4.0cm) Aortic Cusp Exc 1.7 (1.5-2.0cm) EF (%) 55.0 (55-70%) Rt. Atrium 4.4 (1.9-4.0cm) Asc. Aorta 3.3 cm IVSd 1.1 (0.7-1.1cm) RV (D) (1.8-2.4cm) PWd 1.1 (0.7-1.1cm) Mitral Valve Mitral Mitral Stenosis E wave 0.80m/s MV Mean GR. mmHg A wave 0.91m/s MV Peak GR. mmHg E/A ratio 0.9 2D MVA cm2 DECEL Time 297ms PRESS 1/2 Time ms Aortic Valve Aortic Valve Aortic Stenosis V1 1.14m/s AO Mean GR. 5mmHg V2 1.32m/s AO Peak GR. 9mmHg LVOT Diameter 1.8 (1.8-2.4cm) Doppler CATHY 2.20cm2 Pulmonic Valve V2 1.18m/s Tricuspid Valve TR Velocity 2.08m/s RVSP 18mmHg Other Information Technically limited study due to body habitus and patient breathing. Conclusion MILD LVH AND MILD LV DIASTOLIC DYSFUNCTION LV EF IS 65% AND IS NORMAL NORMAL VALVES NO EFFUSION MODERATELY DILATED RV AND RA LIKELY CHRONIC RV STRAIN PATTERN NORMAL RV FUNCTION NORMAL RVSP
[2025-06-16 01:00] VITALS: BP 133/77; PULSE 87; RESP 19; TEMP 97.9; O2SAT 94
[2025-06-16 05:00] VITALS: BP 111/70; PULSE 70; RESP 18; TEMP 98; O2SAT 94
[2025-06-16 08:00] VITALS: PULSE 66
[2025-06-16 08:05] VITALS: PULSE 65
[2025-06-16 09:00] VITALS: BP 123/70; PULSE 58; RESP 18; TEMP 97.8; O2SAT 94
[2025-06-16] MEDS ORDERED: ATOR-507 PO (09:45)
[2025-06-16] MEDS ORDERED: AMLO1TAB23 PO (09:45)
[2025-06-16] MEDS ORDERED: ASPI1TAB19 PO (09:45)
[2025-06-16] MEDS ORDERED: FAMO20TA10 PO (09:47)
--- NOTE | 2025-06-16 09:49 | DVHDS2 ---
Discharge Summary Date of Admission Jun 13, 2025 at 21:30 Date of Discharge: Jun 16, 2025 Labs/Diagnostic Data: Laboratory Results Test 06/15/25 06:08 06/14/25 10:21 06/13/25 22:18 06/13/25 17:45 White Blood Count 7.2 10^3/uL (4.4-10.8) Red Blood Count 4.96 10^6/uL (4.5-5.90) Hemoglobin 15.1 g/dL (13.5-17.5) Hematocrit 42.7 % (41.0-53.0) Mean Corpuscular Volume 86.2 fL (80.0-100.0) Mean Corpuscular Hemoglobin 30.5 pg (28.0-32.0) Mean Corpuscular Hemoglobin Concent 35.3 g/dL (32.0-36.0) Red Cell Distribution Width 13.2 % (11.8-14.3) Platelet Count 229 10^3/uL (140-450) Mean Platelet Volume 8.1 fL (6.9-10.8) Neutrophils (%) (Auto) 51.4 % (37.0-80.0) Lymphocytes (%) (Auto) 33.2 % (10.0-50.0) Monocytes (%) (Auto) 10.9 % (0.0-12.0) Eosinophils (%) (Auto) 3.9 % (0.0-7.0) Basophils (%) (Auto) 0.6 % (0.0-2.0) Neutrophils # (Auto) 3.7 10 ^3/uL (1.6-8.6) Lymphocytes # (Auto) 2.4 10 ^3/uL (0.4-5.4) Monocytes # (Auto) 0.8 10 ^3/uL (0-1.3) Eosinophils # (Auto) 0.3 10 ^3/uL (0-0.8) Basophils # (Auto) 0 10 ^3/uL (0-0.2) Nucleated Red Blood Cells 0.1 % Prothrombin Time 19.3 sec (9.3-11.8) Prothrombin Time INR 1.94 (0.9-1.15) Activated Partial Thromboplast Time 30.9 SEC (24.5-34.5) Sodium Level 138 mmol/L (136-145) Potassium Level 3.2 mmol/L (3.5-5.1) Chloride Level 102 mmol/L (98-107) Carbon Dioxide Level 27 mmol/L (20-31) Anion Gap 9 (5-15) Blood Urea Nitrogen 8 mg/dL (9-23) Creatinine 0.98 mg/dL (0.700-1.30) Glomerular Filtration Rate Calc 87 mL/min (>90) BUN/Creatinine Ratio 8.2 (10.0-20.0) Serum Glucose 92 mg/dL (74-106) Calcium Level 9.2 mg/dL (8.7-10.4) Hemoglobin A1c 5.0 % A1C (<5.7) Total Bilirubin 0.9 mg/dL (0.2-1.0) Aspartate Amino Transferase (AST) 27 U/L (13-40) Alanine Aminotransferase (ALT) 41 U/L (7-40) Alkaline Phosphatase 75 U/L (46-116) Total Protein 6.5 g/dL (5.7-8.2) Albumin 4.2 g/dL (3.2-4.8) Triglycerides Level 65 mg/dL (< 150) Cholesterol Level 148 mg/dL (< 200) LDL Cholesterol 85 mg/dL (< 100) HDL Cholesterol 54 mg/dL (40-59) Thyroid Stimulating Hormone (TSH) 1.67 uIU/mL (0.55-4.78) POC Glucose 124 mg/dl (70-106) Urine Color Yellow (Yellow) Urine Clarity Clear (Clear) Urine pH 5.5 (5.0-9.0) Urine Specific [place] 1.014 (1.001-1.035) Urine Protein Negative (Negative) Urine Ketones 2+ (Negative) Urine Blood Negative /uL (Negative) Urine Nitrite Negative (Negative) Urine Bilirubin Negative (Negative) Urine Urobilinogen Normal mg/dL (Negative) Urine Leukocyte Esterase Negative /uL (Negative) Urine RBC 1 /hpf (0 - 3) Urine Microscopic WBC 1 /HPF (0-3) Urine Squamous Epithelial Cells None seen /hpf (<5) Urine Bacteria None seen /hpf (None Seen) Urine Glucose Normal mg/dL (Normal) Test 06/13/25 16:24 06/13/25 15:33 Troponin I High Sensitivity 4 ng/L (</=54) B-Type Natriuretic Peptide 9.84 pg/mL (0-100) Other Laboratory Tests 06/15/25 06:08 Brief Hx & Hospital Course: 64 M with HTN, HLD morbid obesity, CHUCKY admitted for chest pain, from patient complaints pain looks like anginal pain. 06/14 seen today, c/w bb. cardio consult for stress test vs cath as pt high risk. 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 dc with asa lipitor and pepcid Condition at Discharge: Stable Final Diagnosis/Problems List stable angina CAD w/o acute occlusion CHUCKY/OHS HTN HLD morbid obesity Discharge Disposition: Home Discharge Instruct/Medications Diet: Consistent carbohydrate, Cardiac 2g Na,low cholest Activity: No Restrictions, As Tolerated Medications: aspirin lipitor amlodipine pepcid Scheduled Amlodipine Besylate (Amlodipine Besylate), 1 TAB PO DAILY, (Reported) Amlodipine Besylate (Amlodipine Besylate), 1 TAB PO DAILY Aspirin (Aspirin), 81 MG PO DAILY Atorvastatin Calcium (Lipitor), 1 TAB PO DAILY, (Reported) Atorvastatin Calcium (Lipitor), 1 TAB PO QPM Famotidine (Pepcid Tablet), 1 TAB PO BID Lisinopril & Hydrochlorothiazi (Zestoretic 20-25 mg), 1 TAB PO DAILY, (Reported) Discharge Statement: "Patient was advised to return to the ER or call 911 if any headaches, dizziness, shortness of breath, chest pain, abdominal pain, bleeding, fevers, or worsening of medical condition. Patient was counseled about treatment plan, medications, possible side effects, patientverbalized understanding. All questions were answered to the best of my ability. This discharge took greater then 30 minutes in planning, reviewing documentation, counseling the patient, and discussing with other team members." ASSESSMENT ASSESSMENT Assessment stable angina CAD w/o acute occlusion CHUCKY/OHS morbid obesity Date of Service: Jun 16, 2025 Billing Provider: RACHEL DALAL MD Common Visit Codes: [id number] DISCH DAY >30min RACHEL DALAL MD Jun 16, 2025 09:49
[2025-06-16 11:18] VITALS: BP 123/70; PULSE 63; RESP 18; TEMP 97.9; O2SAT 96
--- NOTE | 2025-06-17 00:05 | DVHPN2 ---
Progress Note - Dictate Date Seen: Jun 16, 2025 Medical Necessity Reason Pt with a Central, PICC or Fol: No Subjective Patient was seen and evaluated in follow-up. Patient has no new complaints at this time. Patient denies any cardiac symptoms. Patient is cardiac stable for discharge. Telemetry reviewed. vital signs Vital Sign Date Time Temp Pulse Resp B/P (MAP) Pulse Ox O2 Delivery O2 Flow Rate FiO2 06/16/25 11:18 97.9 63 18 96 06/16/25 09:48 110/70 06/16/25 08:05 Room Air* 0 21 Total Intake and Output 06/15/25 06/15/25 06/16/25 15:00 23:00 07:00 Intake Total 1000 ml 600 ml Balance 1000 ml 600 ml medications Current Medications Medications Dose Ordered Sig/Henri Route Start Time Stop Time Status Last Admin Dose Admin Albuterol 2.5 mg Q4HPRN PRN NEB 06/14/25 21:15 Cancel Ipratropium [place] 0.5 mg Q4HPRN PRN NEB 06/14/25 21:15 Cancel objective GENERAL: Alert and oriented x 3. No acute distress. Morbidly obese. EYES: PERRL, EOMI. Anicteric. HENT: Moist mucous membranes. LUNGS: Clear to auscultation bilaterally. CARDIOVASCULAR: Regular rate and rhythm. ABDOMEN: Soft, nontender and nondistended. EXTREMITIES: No edema. NEUROLOGIC: No focal neurological deficits. SKIN: Warm, dry. laboratory and microbiology Laboratory Tests 06/15/25 06:08 Test 06/15/25 06:08 Range/Units Serum Glucose 92 74-106 mg/dL Problem List Chest pain. Morbid obesity. HTN. HLD. CHUCKY. Assessment/Plan Continued all current supportive medical care. Echocardiogram. [place] for pain management. Amlodipine. Aspirin, Lipitor, Metoprolol. Additional plan as per the hospital course. Plan discussed with: Patient KOSTAS YEAGER MD Jun 16, 2025 13:10
== END 2025-06-16 12:12 | disposition home or self-care (01) | DRG 287 ==
LOC: ER 15:11 → OVERFLOW 21:30 → TELE-WESTW 06-14 04:09
PROVIDERS: ADMIT Student in an Organized Health Care Education/Training Program; ATTEND Student in an Organized Health Care Education/Training Program
PROC: 03HY32Z Insertion of Monitoring Device into Upper Artery, Percutaneous Approach (ICD-10-PCS; principal; 2025-06-15)
PROC: 4A023N7 Measurement of Cardiac Sampling and Pressure, Left Heart, Percutaneous Approach (ICD-10-PCS; 2025-06-15)
PROC: B211YZZ Fluoroscopy of Multiple Coronary Arteries using Other Contrast (ICD-10-PCS; 2025-06-15)
PROC: B215YZZ Fluoroscopy of Left Heart using Other Contrast (ICD-10-PCS; 2025-06-15)
DX: I25.118 Atherosclerotic heart disease of native coronary artery with other forms of angina pectoris (principal); E66.2 Morbid (severe) obesity with alveolar hypoventilation; I16.0 Hypertensive urgency; Z68.42 Body mass index [BMI] 45.0-49.9, adult; I10 Essential (primary) hypertension; E78.5 Hyperlipidemia, unspecified; Z83.3 Family history of diabetes mellitus; Z79.899 Other long term (current) drug therapy
CPT/HCPCS: 36415; 71045; 80048; 80053; 80061; 81001; 82962; 83036; 83880; 84443; 84484; 85025; 85610; 85730; 93005; 93306; 93458; 99152; G0378; J2250; Q9967